=== PATIENT | male | born 1950 | race Caucasian/White ===

== ENCOUNTER 2022-11-05 10:39 | Outpatient (OUT) | payer MEDICARE, OTHER, SELFPAY ==
[2022-11-05 11:34] LABS: Basophils Percent Auto 0.5 % (0.2-2.0); Eosinophils Absolute Auto 0.2 10^3/uL (0.0-0.7); Eosinophils Percent Auto 2.5 % (0.9-7.0); Hematocrit 44.3 % (42.0-54.0); Hemoglobin 14.9 g/dL (14.0-18.0); Immature Granulocytes Abs Auto 0.02 10^3/uL (0.00-0.03); Immature Granulocytes Pct Auto 0.3 % (0.0-0.5); Lymphocytes Absolute Auto 2.4 10^3/uL (1.2-3.8); Mean Corpuscular HGB Conc 33.6 g/dL (29.9-35.2); Mean Corpuscular Hemoglobin 29.4 pg (25.9-34.0); Mean Corpuscular Volume 87.5 fL (80.0-94.0); Mean Platelet Volume 9.6 fL (9.5-13.5); Monocytes Absolute Auto 0.8 10^3/uL (0.3-0.8); Monocytes Percent Auto 10.4 % (1.7-12.0); Neutrophils Absolute Auto 4.3 10^3/uL (1.4-6.5); Neutrophils Percent Auto 55.3 % (43.0-75.0); Nucleated Red Blood Cells 0; Platelet Count 295 10^3/uL (150-450); Red Blood Count 5.06 10^6/uL (4.70-6.10); Red Cell Distribution Width 13.4 % (11.0-15.0); White Blood Count 7.7 10^3/uL (4.0-11.0)
[2022-11-05 11:47] LABS: Microalbumin Urine Random 1.8 mg/dL (<=30.0)
[2022-11-05 13:05] LABS: Alanine Aminotransferase 26 U/L (16-63); Albumin Level 3.9 g/dL (3.4-5.0); Alkaline Phosphatase 63 U/L (46-116); Anion Gap 16.6; Aspartate Amino Transferase 14 U/L (15-37); Bilirubin Total 0.6 mg/dL (0.2-1.0); Calcium 9.3 mg/dL (8.5-10.1); Carbon Dioxide 23.8 mmol/L (21.0-32.0); Chloride 106 mmol/L (98-107); Chol HDL Ratio 4.4; Cholesterol 189 mg/dL (<=200); Estimated GFR (African America 48 (>=60); Estimated GFR (Non-African Ame 39 (>=60); Globulin 4.1 g/dL; Glucose 102 mg/dL (74-106); HDL Cholesterol 43 mg/dL (40-60); LDL Cholesterol Calculated 123.8 mg/dL; Potassium 4.4 mmol/L (3.5-5.1); Prostate Specific Antigen Scrn 0.99 ng/mL (<=4.00); Sodium 142 mmol/L (136-145); Triglycerides 111 mg/dL (<=150); VLDL CHOLESTEROL 22.2 mg/dL
== END 2022-11-05 10:40 ==
LOC: LAB 10:50
PROVIDERS: PCP Family Medicine; Visit Provider Family Medicine
DX: Z12.5 Encounter for screening for malignant neoplasm of prostate (principal); I12.9 Hypertensive chronic kidney disease with stage 1 through stage 4 chronic kidney disease, or unspecified chronic kidney disease; N18.30 Chronic kidney disease, stage 3 unspecified
CPT/HCPCS: 36415; 80053; 80061; 82043; 85025; G0103

== ENCOUNTER 2024-12-05 08:14 | Outpatient (OUT) | payer MEDICARE, OTHER, SELFPAY ==
--- OUTSIDE RECORDS SUMMARY | 2024-12-05 08:20 | XMS_ITS | Clinical Summary ---
Author Organization [facility] Address [address] [place] [address] Care Team Providers Care Architectural Examiner Name Role Phone Alexandra Cesar MD Primary Care Provider [phone] Allergies No known active allergies Medications aspirin 81 mg EC tablet Take 1 tablet every day by oral route. Active metoprolol succinate XL (Toprol-XL) 50 mg 24 hr tabletIndications :Primary hypertension Take 1 tablet (50 mg) by mouth once daily as directed. 90 tablet 3 5 Active lisinopril 40 mg tabletIndications :Primary hypertension Take 1 tablet (40 mg) by mouth in the morning. 90 tablet 3 5 Active lisinopril 40 mg tablet Take 1 tablet by mouth in the morning. 12/02/19 25 Discontinu ed(Reorder ) metoprolol succinate XL (Toprol-XL) 50 mg 24 hr tablet Take 1 tablet by mouth in the morning. 12/02/19 25 Discontinu ed(Reorder ) Active Problems Problem Noted Date Diagnosed Date Cardiac pacemaker in situ 11/02/2018 Complete atrioventricular block 11/02/2018 Essential hypertension 11/02/2018 Encounters Date Type Department Care Team Description 12/01/2024 9:00 AM EDT Office Visit [address] [address] Yonatan Contreras CNP Primary hypertension (Primary Dx); History of noncompliance with medical treatment; High degree atrioventricular block; Coronary artery disease involving [place] coronary artery of [place] heart without angina pectoris; Lipid screening 11/14/2024 9:30 AM EDT Ancillary Procedure [facility] [address] [place] [address] Encounter for implantable defibrillator reprogramming or check from Last 3 Months Family History Medical History Relation Name Comments Atrial fibrillation Brother Coronary artery disease Brother ckd Brother No Known Problems Father No Known Problems Mother Relation Name Status Comments Brother Father Mother Social History Tobacco Use Types Packs/Day Years Used Date Smoking Tobacco: Former Cigarettes Smokeless Tobacco: Never Tobacco Cessation:Counseling Given: Not Answered Alcohol Use Standard Drinks/Week Comments Not Currently 0 (1 standard drink = 0.6 oz pur e alcohol) [place] Safety & Environment Answer Date Rec orded Fear of Current or Ex-Partner Not on file Emotionally Abused Not on file 07/29/2023 Physically Abused Not on file 07/29/2023 Sexually Abused Not on file 07/29/2023 Physically or Sexually Abused Not on file Sex and Gender Information Value Date Recorded Sex Assigned at Not on file Legal Sex Male 11:34 PM EDT Gender Identity Not on file Sexual Orientation Not on file Last Filed Vital Signs Vital Sign Reading Time Taken Comments Blood Pressure 174/102 12/01/2024 8:45 AM EDT Pulse 78 12/01/2024 8:45 AM EDT Temperature - - Respiratory Rate 16 11/29/2020 9:17 AM EDT Oxygen Saturation 96% 12/01/2024 8:45 AM EDT Inhaled Oxygen Concentration - - Weight 98.9 kg (218 lb) 12/01/2024 8:45 AM EDT Height 185.4 cm (6' 1 ) 12/01/2024 8:45 AM EDT Body Mass Index 28.76 12/01/2024 8:45 AM EDT Plan of Treatment Upcoming Encounters Date Type Department Care Team (Late st Contact Info) Description 02/19/2025 10:00 AM EDT Office Visit [facility] [address] [place] [address] Yonatan Contreras, HEATING AND BLENDING SUPERVISOR [address] [place] [address] Health Maintenance Due Date Last Done Comments CT Colonography 1949 Colonoscopy 1950 Colorectal Cancer Screening 1949 FIT-DNA 1949 FIT 1949 FOBT 1950 Medicare Annual Wellness (AWV) 1950 Sigmoidoscopy 1949 Depression Screening 1961 Pneumococcal Vaccine: 50+ Ye ars (1 of 2 - PCV) 1968 Adult Tetanus 12/11/1971 Zoster Vaccines (1 of 2) 12/11/1999 Fall Risk Screening 2014 COVID-19 Vaccine (1 - 2023-2 5 season) 2024 Influenza Vaccine (Season Ended) 2025 HIB Vaccines Aged Out No longer eligi ble based on patient's age to complete this topic HPV Vaccines Aged Out No longer eligi ble based on patient's age to complete this topic IPV Vaccines Aged Out No longer eligi ble based on patient's age to complete this topic Meningococcal B Vaccine Aged Out No l onger eligible based on patient's age to complete this topic Meningococcal Vaccine Aged Out No debi adam eligible based on patient's age to complete this topic Rotavirus Vaccines Aged Out No longer eligible based on patient's age to complete this topic Procedures Procedure Name Priority Date/Time Associated Diagnosis Comments CARDIAC DEVICE CHECK - IN CLINIC - PACEMAKER DUAL CHAMBER W/ PROG Routine 11/15/2024 11:55 AM EDT Encounter for implantable defibrillator reprogramming or check from Last 3 Months Results * CARDIAC DEVICE CHECK - IN CLINIC - PACEMAKER DUAL CHAMBER W/ PROG (11/15/2024 11:55 AM EDT) Anatomical Region Laterality Modality Other Narrative 11/16/2024 1:08 PM EDT By using the attestations below, the signing clinician agrees that I have read and verify that the documentation has been personally reviewed by me and ensure that the documentation accurately reflects the encounter. Routine EP device follow up as per schedule. Please see attached note us Rei Thorne MD CV IMPLANTABLE CARDIAC DEVICE [place] OCEDURES Final Result from Last 3 Months Insurance [employer] [place] [id number] Care Teams Architectural Examiner Relationship Specialty Start Date End Date Alexandra Cesar MD [address] [facility] #A PCP - General 11/12/22
--- OUTSIDE RECORDS SUMMARY | 2024-12-05 08:20 | XMS_ITS | Referral Summary ---
Author Organization [facility] Address [address] [place] [address] Care Team Providers Care Rubber Belt Splicer Name Role Phone Alexandra Cesar MD Primary Care Provider [phone] Encounters Date Type Department Care Team Description 12/01/2024 9:00 AM EDT Office Visit [facility] [address] [place] [address] Yonatan Contreras CNP Primary hypertension (Primary Dx); History of noncompliance with medical treatment; High degree atrioventricular block; Coronary artery disease involving [place] coronary artery of [place] heart without angina pectoris; Lipid screening 11/14/2024 9:30 AM EDT Ancillary Procedure [facility] [address] [place] [address] Encounter for implantable defibrillator reprogramming or check from Last 3 Months Allergies No known active allergies Medications aspirin [...] tablet by mouth in the morning. 12/02/19 Discontinu ed(Reorder ) metoprolol succinate XL (Toprol-XL) 50 mg 24 hr tablet Take 1 tablet by mouth in the morning. 12/02/19 25 Discontinu ed(Reorder ) Active Problems Problem Noted Date Diagnosed Date Cardiac pacemaker in situ 11/02/2018 Complete atrioventricular block 11/02/2018 Essential hypertension 11/02/2018 Social History Tobacco Use Types Packs/Day Years [...] Description 02/19/2025 10:00 AM EDT Office Visit [facility] [address] [place] [address] Yonatan Contreras, WATER TAXI OPERATOR [address] [place] [address] Procedures Procedure Name Priority Date/Time Associated Diagnosis [...] Rei Thorne MD CV IMPLANTABLE CARDIAC DEVICE [place] OCEDURES Final Result from Last 3 Months Insurance [employer] [place] Care Teams Rubber Belt Splicer Relationship Specialty Start Date End Date Alexandra Cesar MD [address] [facility] #A PCP - General 11/12/22
[2024-12-05 08:37] LABS: Hematocrit 48.3 % (42.0-54.0); Hemoglobin 16.5 g/dL (14.0-18.0); Immature Granulocytes Abs Auto 0.02 10^3/uL (0.00-0.03); Immature Granulocytes Pct Auto 0.3 % (0.0-0.5); Lymphocytes Absolute Auto 2.5 10^3/uL (1.2-3.8); Mean Corpuscular HGB Conc 34.2 g/dL (29.9-35.2); Mean Corpuscular Hemoglobin 29.6 pg (25.9-34.0); Mean Corpuscular Volume 86.7 fL (80.0-94.0); Platelet Count 297 10^3/uL (150-450); Red Blood Count 5.57 10^6/uL (4.70-6.10); White Blood Count 8.0 10^3/uL (4.0-11.0)
[2024-12-05 09:46] LABS: Alanine Aminotransferase 23 U/L (16-63); Albumin Globulin Ratio 0.9; Albumin Level 3.5 g/dL (3.4-5.0); Alkaline Phosphatase 73 U/L (46-116); Anion Gap 16.5; Aspartate Amino Transferase 17 U/L (15-37); Blood Urea Nitrogen 24.0 mg/dL (7.0-18.0); Calcium 9.0 mg/dL (8.5-10.1); Carbon Dioxide 23.8 mmol/L (21.0-32.0); Chloride 106 mmol/L (98-107); Cholesterol 161 mg/dL (<=200); Estimated GFR (African America 57 (>=60 mL/min/1.73m^2); Estimated GFR (Non-African Ame 47 (>=60 mL/min/1.73m^2); Globulin 4.1 g/dL; Glucose 120 mg/dL (74-106); HDL Cholesterol 40 mg/dL (40-60); Potassium 4.3 mmol/L (3.5-5.1); Sodium 142 mmol/L (136-145); Total Protein 7.6 g/dL (6.4-8.2); Triglycerides 102 mg/dL (<=150); VLDL CHOLESTEROL 20.4 mg/dL
== END 2024-12-05 08:15 | disposition home or self-care (01) ==
PROVIDERS: PCP Family Medicine
DX: I25.10 Atherosclerotic heart disease of native coronary artery without angina pectoris (principal); I10 Essential (primary) hypertension; Z13.220 Encounter for screening for lipoid disorders
CPT/HCPCS: 36415; 80053; 80061; 85025